=== PATIENT | female | born 1955 | race African-American/Black ===

== ENCOUNTER 2019-01-06 09:35 | Emergency (ER) | payer MEDICARE, MEDICAID ==
[~2019-01-06] VITALS: Ht 167.6 cm; Wt 64.0 kg
[~2019-01-06 09:35] MED LIST: BENA10TA10; GABAPENTIN; GLIPIZIDE; METFORMIN; NORVASC
[2019-01-06] MEDS ORDERED: KETOROLAC 30MG/ML VIAL IV ONE (10:30)
[2019-01-06 10:38] VITALS: BP 191/91
== END 2019-01-06 12:09 | disposition home or self-care (01) ==
LOC: ER 09:35
DX: S63.502A Unspecified sprain of left wrist, initial encounter (principal); M13.832 Other specified arthritis, left wrist; E11.9 Type 2 diabetes mellitus without complications; E78.00 Pure hypercholesterolemia, unspecified; I10 Essential (primary) hypertension; F12.10 Cannabis abuse, uncomplicated; Z88.0 Allergy status to penicillin; Z79.899 Other long term (current) drug therapy; W18.39XA Other fall on same level, initial encounter; Y93.89 Activity, other specified; Y92.89 Other specified places as the place of occurrence of the external cause; Y99.8 Other external cause status
CPT/HCPCS: 29125; 73110; 96374; 99283; J1885